=== PATIENT | male | born 1980 | race African-American/Black ===

== ENCOUNTER 2017-03-18 13:42 | Emergency (ER) | payer OTHER ==
[~2017-03-18] VITALS: Ht 177.8 cm; Wt 93.0 kg
[2017-03-18 15:46] VITALS: BP 177/106
[2017-03-18 17:40] LABS: Hepatitis B Surface Antibody Positive
== END 2017-03-18 17:14 | disposition home or self-care (01) ==
LOC: ER 13:45
DX: S61.202A Unspecified open wound of right middle finger without damage to nail, initial encounter (principal); W46.0XXA Contact with hypodermic needle, initial encounter; Y93.89 Activity, other specified; Y99.8 Other external cause status; Y92.89 Other specified places as the place of occurrence of the external cause
CPT/HCPCS: 36415; 86703; 86706; 86803; 87340